=== PATIENT | male | born 1995 | race Caucasian/White ===

== ENCOUNTER 2018-02-09 00:44 | Emergency (ER) | payer SELFPAY ==
[2018-02-09] MEDS: HYDROmorphONE 1 MG/5 ML IV SYRINGE IV ×3 (02:18→06:19)
[2018-02-09] MEDS: ONDANSETRON 4 MG INJ IV ×2 (02:28→07:32)
[2018-02-09 02:43] LABS: ADD MAN DIFF? NO
[2018-02-09 02:45] LABS: WHITE BLOOD COUNT 10.3 10^3/ul (4.8-10.8)
[2018-02-09 02:45] LABS: BASOPHILS % 0.3 % (0.0-2.0); EOSINOPHILS # 0.1 10^3/ul (0.0-0.5); EOSINOPHILS % 0.6 % (0.0-7.0); HEMATOCRIT 45.9 % (42.0-52.0); HEMOGLOBIN 16.2 g/dl (14.0-18.0); LYMPHOCYTES # 1.6 10^3/ul (0.8-2.9); LYMPHOCYTES % 15.8 % (15.0-51.0); MEAN CORPUSCULAR HGB CONC 35.3 g/dl (32.0-37.0); MEAN CORPUSCULAR VOLUME 90.5 fl (82.0-101.0); MEAN PLATELET VOLUME 10.1 fl (7.4-10.4); MONOCYTE # 0.5 10^3/ul (0.3-0.9); MONOCYTES % 5.2 % (0.0-11.0); NEUTROPHILS % 77.5 % (39.0-77.0); PLATELET COUNT 236 10^3/UL (140-415); RED BLOOD COUNT 5.07 10^6/ul (4.70-6.10); RED CELL DISTRIBUTION WIDTH 11.9 % (11.5-14.5)
[2018-02-09] MEDS: DIPHTH/TET/ACEL PERTUSS (ADULT) 0.5 ML VIAL IM* (02:52)
[2018-02-09] MEDS: CEFAZOLIN 1 GM/50 ML (PMX) 50 ML IVPB (02:52)
[2018-02-09] MEDS: SOD CHLORIDE 0.9% 1,000 ML IV (02:53)
[2018-02-09 03:00] LABS: PROTIME 12.2 Sec (11.9-14.9)
[2018-02-09 03:01] LABS: PARTIAL THROMBOPLASTIN TIME 27.9 Sec (25.0-35.0)
[2018-02-09 03:24] LABS: ANION GAP 19 (8-16); BLOOD UREA NITROGEN 17 mg/dl (7-20); CALCIUM 9.6 mg/dl (8.4-10.2); CARBON DIOXIDE 26 mmol/L (21-31); CHLORIDE 107 mmol/L (97-110); CREATININE 1.09 mg/dl (0.61-1.24); GLUCOSE 126 mg/dl (70-220); POTASSIUM 3.7 mmol/L (3.5-5.1); SODIUM 148 mmol/L (135-144)
[2018-02-09] MEDS: morphine 10 MG INJ IV (07:32)
== END 2018-02-09 07:44 | disposition short-term general hospital (02) ==
LOC: E/R 07:44 → FTE 00:44 → E/R 07:44
DX: S02.601B Fracture of unspecified part of body of right mandible, initial encounter for open fracture (principal); S02.67 Fracture of alveolus of mandible; F17.210 Nicotine dependence, cigarettes, uncomplicated; R93.0 Abnormal findings on diagnostic imaging of skull and head, not elsewhere classified; Y04.8XXA Assault by other bodily force, initial encounter; Z23 Encounter for immunization
CPT/HCPCS: 36415; 70450; 70486; 72125; 80048; 85025; 85610; 85730; 90715; 96372; 96374; 96375; 96376; 99285-25